=== PATIENT | male | born 1985 | race Caucasian/White ===

== ENCOUNTER 2019-08-11 11:14 | Emergency (ER) | payer OTHER, SELFPAY ==
--- NOTE | ~2019-08-11 | XR_ITS ---
EXAMINATION: XR chest 2V EXAM DATE: 08/11/2019 13:42 INDICATION: Shortness of breath, nausea. TECHNIQUE: Frontal and lateral projections of the chest obtained and reviewed. There is no prior cameron dy for comparison. FINDINGS: The lungs are clear. There are no pleural effusions. The cardiomediastinal silhouette is within normal limits. There is no pneumothorax suspected. The bones and soft tissues are unremarkab le. IMPRESSION: Normal chest x-ray exam. Reviewed, dictated and finalized at location A. CLERK BILLS IMPRESSION: Normal chest x-ray exam.
[2019-08-11 11:30] VITALS: BP 132/81; PULSE 110; RESP 26; O2SAT 96
--- NOTE | 2019-08-11 13:10 | ECG_ITS ---
Measurements Intervals [place] Rate: 75 P: 59 SD: 188 QRS: 57 QRSD: 101 T: 46 QT: 409 QTc: 457 Interpretive Statements SINUS RHYTHM INCOMPLETE RIGHT BUNDLE BRANCH BLOCK T WAVE ABNORMALITY IN ANTERIOR LEADS- CONSIDER ISCHEMIA BASELINE ARTIFACT- I, II, III, AVR, AVL,A VF, V1-V6 ABNORMAL ECG Electronically Signed On 08-11-2019 13:30:09 [employer] by Junior Sargent D.O.
[2019-08-11 13:13] VITALS: BP 134/83; PULSE 80; RESP 16; O2SAT 98
--- NOTE | 2019-08-11 13:19 | ED.DIZZY ---
HPI - Dizziness General Chief Complaint: Dizziness Stated Complaint: acute alcohol withrawls and short of breath Time Seen by Provider: 08/11/19 13:10 Source: patient and RN notes reviewed Mode of arrival: ambulatory Limitations: no limitations History of Present Illness HPI Narrative: A 33 y/o male presents to the ED d/t lightheadedness beginning yesterday. He states that he is a alcoholic that relapsed 6 days ago. He reports that he began with drinking beer but then started drinking hard liquor and is unsure on the amount. He notes that he last drank 2 days ago and that yesterday he began to become lightheaded, have generalized tremors, tingling in lips, tingling in fingers, and SOB. He also notes that he has a hx of getting fluid on his lungs and in his ABD which required a chest tube and paracentesis in the past, so he decided to come to the ED. He denies any fevers, chills, CP, N/V/D, ABD pain, and any other medical complaints at this time. MD elicited complaint: lightheadedness Onset (ago): day(s) (yesterday) Timing: unsure Description: lightheadedness Context: other (EtOH withdraw) History of similar symptoms: Yes Associated symptoms: shortness of breath and other (generalized tremors, lip tingling, and finger tingling) Related Data Allergies Allergy/AdvReac Type Severity Reaction Status Date / Time Penicillins AdvReac Mild Diarrhea Verified 08/15/16 14:53 Review of Systems Review of Systems: All systems reviewed & are unremarkable except as noted in HPI and below Constitutional: Constitutional: Denies chills, Denies fever(s), Denies headache(s) and Denies weakness Eyes: Eyes: Denies blurry vision ENT: Denies headache(s) and Denies neck pain Cardiovascular: Cardiovascular: Denies chest pain, Reports lightheadedness and Denies dyspnea Respiratory: Respiratory: Denies cough and Reports dyspnea Gastrointestinal: Gastrointestinal: Denies abdominal pain, Denies diarrhea, Denies nausea and Denies vomiting Genitourinary: Genitourinary: Denies hematuria and Denies dysuria Musculoskeletal: Musculoskeletal: Denies back pain and Denies neck pain Neurologic: Denies headache(s), Reports tingling (to lips and fingers), Reports tremor(s) (generalized) and Denies weakness [facility] Past Medical History Medical History (Updated 08/11/19 @ 15:31 by Purvi Lewis MD) Anxiety Asthma Bipolar 1 disorder Clubbed foot Depression History of abdominal paracentesis Liver cirrhosis, alcoholic Self-mutilation Surgical History Surgical History (Updated 08/11/19 @ 15:24 by Miguel Ángel Montejo) H/O foot surgery History of chest tube placement Social History Social History (Updated 08/11/19 @ 15:22 by Miguel Ángel Montejo) Smoking status: Current every day smoker Second hand tobacco smoke exposure: Yes Alcohol intake: current Substance use: current Substance use type: marijuana Gender identity (if verbalized by the patient): Male Exam Const: General: no acute distress and well developed Orientation/consciousness: oriented to person, oriented to place, oriented to time and patient oriented x3 HENMT: Head: normocephalic Ears: external ears normal General nose exam: Normal external nose present Eyes: General: appearance normal, both eyes and all related structures Conjunctivae: conjunctivae normal Neck: Neck: normal visual inspection and full ROM Chest: Chest palpation & inspection: normal inspection of the chest and no tenderness Resp: Effort & Inspection: normal respiratory effort Auscultation: clear to auscultation bilaterally Cardio: Rate: regular rate Rhythm: regular rhythm GI: GI Palp: No abdominal tenderness and Yes Soft to palpation Skin: General skin exam: normal color and turgor normal Neuro: General: oriented to person, oriented to place, oriented to time and patient oriented x3 Cognition (Neuro): normal cognition Motor exam (neuro): Tremors during motor activity present (generalized) Extrem: General: normal
[2019-08-11 13:23] LABS: Basophils Percent Auto 0.8 % (0.2-1.2); Eosinophils Percent Auto 0.4 % (0-4.4); Hematocrit 34.1 % (42.0-52.0); Hemoglobin 11.3 g/dL (14.0-18.0); Immature Granulocyte Absolute 0.01 K/mm3 (0.00-0.031); Immature Granulocyte Percent A 0.4 % (0-0.5); Lymphocytes Absolute Auto 0.55 K/mm3 (0.9-3.2); Lymphocytes Percent Auto 23.3 % (18.3-44.2); Mean Corpuscular HGB Conc 33.1 g/dl (32-36); Mean Corpuscular Hemoglobin 29.7 pg (26-34); Mean Corpuscular Volume 89.5 fl (80-100); Mean Platelet Volume 9.2 fl (7.4-10.4); Monocytes Absolute Auto 0.4 K/mm3 (0.1-0.6); Monocytes Percent Auto 14.8 % (2.6-8.5); Neutrophils Absolute Auto 1.4 K/mm3 (1.3-6.7); Neutrophils Percent Auto 60.3 % (45.5-73.1); Platelet Count Result 71 k/mm3 (150-375); Red Blood Count 3.81 M/mm3 (4.6-6.20); Red Cell Distribution Width 15.3 % (11.5-14.5); White Blood Count 2.4 K/mm3 (4.5-10.0)
[2019-08-11 13:38] LABS: Alanine Aminotransferase 55 U/L (4-50); Albumin Level 4.6 g/dL (3.5-5.1); Alkaline Phosphatase 122 U/L (38-126); Aspartate Amino Transferase 168 U/L (17-59); Bilirubin,Total 1.2 mg/dL (0.2-1.3); Blood Urea Nitrogen 10 mg/dL (9-20); Calcium 9.1 mg/dL (8.4-10.2); Carbon Dioxide 24 mmol/L (22-30); Chloride 99 mmol/L (98-107); Estimated CRCL calculation 130 ml/min; Estimated Glomerular Filt Rate > 60; Glucose 126 mg/dL (75-110); Potassium 3.5 mmol/L (3.4-5.0); Sodium 138 mmol/L (137-145)
[2019-08-11 13:40] LABS: Ethanol 12 mg/dL (<10)
[2019-08-11] MEDS: SODIUM CHLORIDE 0.9% IV 1,000 ML 999 ML IV CONT (13:53)
[2019-08-11] MEDS: CHLORDIAZEPOXIDE 25 MG CAPSULE PO (13:53)
[2019-08-11 15:47] VITALS: BP 125/76; PULSE 70; RESP 20; O2SAT 98
== END 2019-08-11 15:49 | disposition home or self-care (01) ==
PROVIDERS: Emergency Provider Emergency Medicine
DX: F10.239 Alcohol dependence with withdrawal, unspecified (principal); K70.30 Alcoholic cirrhosis of liver without ascites; J45.909 Unspecified asthma, uncomplicated; Y90.0 Blood alcohol level of less than 20 mg/100 ml; F17.200 Nicotine dependence, unspecified, uncomplicated
CPT/HCPCS: 36415; 71046; 80053; 80307; 85025; 93005; 96360; 99283; A9270; J7030